=== PATIENT | male | born 1955 | race African-American/Black ===

== ENCOUNTER 2024-08-07 20:21 | Emergency (ER) | payer MEDICAID, OTHER ==
[~2024-08-07] VITALS: Ht 162.6 cm; Wt 82.5 kg
[~2024-08-07 20:21] MED LIST: CIPR-173 PO; TRAM50TA2 PO
[2024-08-07 20:35] VITALS: BP 138/78; PULSE 89; RESP 18; TEMP 97.7; O2SAT 95
== END 2024-08-07 21:54 | disposition home or self-care (01) ==
LOC: ER 20:21
DX: S22.42XA Multiple fractures of ribs, left side, initial encounter for closed fracture (principal); S46.811A Strain of other muscles, fascia and tendons at shoulder and upper arm level, right arm, initial encounter; I10 Essential (primary) hypertension; F17.210 Nicotine dependence, cigarettes, uncomplicated; Z91.012 Allergy to eggs; Z91.013 Allergy to seafood; Z79.899 Other long term (current) drug therapy; W18.39XA Other fall on same level, initial encounter; Y93.89 Activity, other specified; Y92.59 Other trade areas as the place of occurrence of the external cause; Y99.8 Other external cause status
CPT/HCPCS: 71101; 73030